=== PATIENT | female | born 1970 | race Caucasian/White ===

== ENCOUNTER → 2018-04-03 | Outpatient (CLI) | payer MEDICAID | END | disposition home or self-care (01) | LOC: CFH 13:09 | PROVIDERS: ATTEND Family Medicine | DX: N64.4 Mastodynia (principal) | CPT/HCPCS: 77066 ==

== ENCOUNTER 2018-07-06 10:01 | Outpatient (CLI) | payer MEDICAID ==
[2018-07-06] MEDS ORDERED: THYROID PO (10:33)
[2018-07-06] MEDS ORDERED: PSEU120T9 PO (10:33)
[2018-07-06] MEDS ORDERED: AUGMENTIN (10:33)
[2018-07-06] MEDS ORDERED: CHOLESTEROL PO (10:33)
== END 2018-07-06 23:59 | disposition home or self-care (01) ==
LOC: STAR 10:01
PROVIDERS: ATTEND Otolaryngology
DX: Z02.9 Encounter for administrative examinations, unspecified (principal)

== ENCOUNTER 2018-07-11 05:55 | Day surgery (SDC) | payer MEDICAID ==
[~2018-07-11] VITALS: Ht 157.5 cm; Wt 67.1 kg
[~2018-07-11 05:55] MED LIST: AUGMENTIN; CHOLESTEROL PO; PSEU120T9 PO; THYROID PO
[2018-07-11] MEDS ORDERED: EPINEPHRINE TOPICAL SOLN 1 MG/ML, 30ML ONE (06:20)
[2018-07-11] MEDS ORDERED: LIDOCAINE 1%-EPI 1:100K, 20ML ONE (06:21)
[2018-07-11] MEDS ORDERED: OXYMETAZOLINE NASAL SPRAY 0.05%, 15ML ONE (06:21)
[2018-07-11] MEDS ORDERED: FLUORESCEIN SODIUM 500 MG/5 ML ONE (06:21)
[2018-07-11] MEDS ORDERED: BACITRACIN OINT 500U/GM, 15 GM ONE (06:21)
[2018-07-11] MEDS ORDERED: FLUT9.9S NAS (06:36)
[2018-07-11] MEDS ORDERED: AMOX1TAB61 PO (06:36)
[2018-07-11] MEDS ORDERED: LEVO75TA5 PO (06:36)
[2018-07-11] MEDS ORDERED: ATOR20TA PO (06:36)
[2018-07-11] MEDS ORDERED: LACTATED RINGERS 1,000 ML IV SCH (06:41)
[2018-07-11] MEDS ORDERED: FENTANYL PF 250 MCG/5ML ONE (07:24)
[2018-07-11] MEDS ORDERED: CEFAZOLIN 1,000 MG ONE ×2 (07:24→07:25)
[2018-07-11] MEDS ORDERED: SUCCINYLCHOLINE 20 MG/ML, 10ML ONE ×2 (07:24)
[2018-07-11] MEDS ORDERED: MIDAZOLAM 1 MG/ML, 2ML ONE (07:24)
[2018-07-11] MEDS ORDERED: PROPOFOL 10 MG/ML, 20ML ONE ×2 (07:24)
[2018-07-11] MEDS ORDERED: METOPROLOL 1 MG/ML, 5ML ONE (08:12)
[2018-07-11] MEDS ORDERED: ONDANSETRON 2MG/ML, 2ML ONE (08:22)
[2018-07-11] MEDS ORDERED: DEXAMETHASONE 4 MG/ML, 1ML ONE ×2 (08:28)
[2018-07-11] MEDS ORDERED: FENTANYL PF 100 MCG/2ML ONE ×4 (08:45→10:42)
[2018-07-11] MEDS ORDERED: LIDOCAINE 4%, 4 ML SYR/CANN TP ONE (08:52)
[2018-07-11] MEDS ORDERED: ACETAMINOPHEN 325 MG TABLET PO PRN (09:00)
[2018-07-11] MEDS ORDERED: OXYcodone 5 MG/5 ML ORAL.SOL UDC PO PRN (09:00)
[2018-07-11] MEDS ORDERED: MEPERIDINE/PF 25MG/0.5ML IVPush PRN (09:00)
[2018-07-11] MEDS ORDERED: PROMETHAZINE 25 MG/ML, 1ML IV PRN (09:00)
[2018-07-11] MEDS ORDERED: hydrALAzine 20 MG/ML, 1ML ONE (09:35)
[2018-07-11] MEDS ORDERED: LABETALOL 20 MG/4 ML IVPush PRN (10:00)
[2018-07-11] MEDS ORDERED: OXYcodone 5 MG/5 ML ORAL.SOL UDC ONE (10:19)
[2018-07-11] MEDS ORDERED: ACETAMINOPHEN 650 MG/20.3 ML UDC ONE (10:19)
[2018-07-11] MEDS: FENTANYL PF 100 MCG/2ML IV PRN ×3 (10:21→10:44)
== END 2018-07-11 12:15 | disposition home or self-care (01) ==
LOC: OUT 05:55
PROVIDERS: ATTEND Otolaryngology
DX: J34.2 Deviated nasal septum (principal); J01.01 Acute recurrent maxillary sinusitis; J33.9 Nasal polyp, unspecified; F17.210 Nicotine dependence, cigarettes, uncomplicated; K21.9 Gastro-esophageal reflux disease without esophagitis; E03.9 Hypothyroidism, unspecified; Z98.890 Other specified postprocedural states; Z72.89 Other problems related to lifestyle
CPT/HCPCS: 30520; 31240; 31253; 31267; 31287; 61782; 87070; 87075; 87205; 88304; 88311; J0330; J0360; J0690; J1100; J2250; J2405; J2704; J3010; J3490; J7120

== ENCOUNTER → 2019-05-21 | Outpatient (CLI) | payer MEDICAID ==
[~2019-05-21] MED LIST changes: +AMOX1TAB61 PO; +ATOR20TA PO; +FLUT9.9S NAS; +LEVO75TA5 PO
== END | disposition home or self-care (01) ==
LOC: CFH 13:51
PROVIDERS: ATTEND Family Medicine
DX: N63.22 Unspecified lump in the left breast, upper inner quadrant (principal)
CPT/HCPCS: 76642; 77066; G0279

== ENCOUNTER → 2019-07-04 | Outpatient (CLI) | payer MEDICAID | END | disposition home or self-care (01) | LOC: CFH 08:57 | PROVIDERS: ATTEND Family Medicine | DX: R05 Cough (principal); R06.02 Shortness of breath; Z87.891 Personal history of nicotine dependence | CPT/HCPCS: 71250 ==